=== PATIENT | female | born 1990 | race American Indian/Alaskan Native ===

== ENCOUNTER 2018-12-02 05:57 | Emergency (ER) | payer SELFPAY ==
[2018-12-02 06:07] VITALS: BP 130/70
[2018-12-02 06:20] LABS: Basophils % (Auto) 1.1 % (0.0-1.8); Eosinophils # (Auto) 0.2 K/mm3 (0.0-0.4); Eosinophils % (Auto) 3.7 % (0.0-4.3); Hemoglobin 12.5 gm/dl (10.1-14.3); Lymphocytes # (Auto) 1.9 K/mm3 (1.2-5.4); Lymphocytes % (Auto) 42.6 % (13.4-35.0); Mean Corpuscular HGB Conc 33 % (30-34); Mean Corpuscular Volume 89 fl (79-97); Monocytes # (Auto) 0.4 K/mm3 (0.0-0.8); Platelet Count 252 K/mm3 (140-440); Red Blood Count 4.28 M/mm3 (3.65-5.03); Red Cell Distribution Width 15.2 % (13.2-15.2)
[2018-12-02 06:36] LABS: Alanine Aminotransferase 155 units/L (7-56); Albumin 4.6 g/dL (3.9-5); BUN/Creatinine Ratio 18; Blood Urea Nitrogen 14 mg/dL (7-17); Hemolysis Index 5
== END 2018-12-02 06:48 | disposition left against medical advice (07) ==
LOC: ED 05:57
DX: R10.9 Unspecified abdominal pain (principal); Z53.21 Procedure and treatment not carried out due to patient leaving prior to being seen by health care provider
CPT/HCPCS: 36415; 80053; 83690; 84703; 85025

== ENCOUNTER 2018-12-02 08:46 | Emergency (ER) | payer BC ==
[2018-12-02] MEDS ORDERED: NACL 0.9% 1000 ML 1,000 ML IV ONE (09:02)
[2018-12-02] MEDS ORDERED: TORADOL IM ONE (09:02)
[2018-12-02] MEDS ORDERED: PEPCID IV ONE (09:02)
[2018-12-02] MEDS ORDERED: ZOFRAN IM ONE (09:02)
[2018-12-02] MEDS ORDERED: BENTYL IM ONE ×2 (09:02→09:05)
[2018-12-02] MEDS ORDERED: TORADOL ONE (09:05)
[2018-12-02] MEDS ORDERED: ZOFRAN ONE (09:05)
--- NOTE | 2018-12-02 10:32 | Ultrasound Report ---
ULTRASOUND ABDOMEN, LIMITED (RIGHT UPPER QUADRANT), 12/02/2018 INDICATION: Right upper quadrant pain. Nausea and vomiting COMPARISON: None FINDINGS: Pancreas: Visualized portion shows no significant abnormality. Liver: Visualized portions of the liver appear normal. Gallbladder: The gallbladder contains several small stones, the largest of which measures 1.3 cm. The re is no evidence of gallbladder wall thickening or pericholecystic fluid. Bile ducts: Common Bile Duct is normal in caliber, measuring less than 5 mm. Free fluid: None. Additional Findings: None. IMPRESSION: 1. Several gallstones as described without sonographic evidence to suggest cholecystitis. Signer Name: Rosita Olguin MD Signed: 12/02/2018 10:27 AM Workstation Name: [id number]
--- NOTE | 2018-12-02 11:16 | Emergency Department Report ---
ED Abdominal Pain HPI - General Chief Complaint: Abdominal Pain Stated Complaint: STOMACH PAIN/VOMIT/SOB Time Seen by Provider: 12/02/18 08:56 Source: patient Mode of arrival: Ambulatory Limitations: No Limitations - History of Present Illness Initial Comments: Patient is a 28-year-old female who is presenting with abdominal pain since last night. Patient states that the pain is severe in the upper epigastric area. She's had small episodes of nausea and vomiting. She states that her symptom present for approximately one week off and on. She states it is worse with eating but cannot remember specifically which foods made the pain worse. Patient actually was received here in the emergency department but left AGAINST MEDICAL ADVICE after labs were drawn because she had to go home to breast-feed her child. Patient is returned. Patient denies any fevers chills diarrhea cough cold or congestion. Severity scale (0 -10): 8 - Related Data Previous Rx's Medication Instructions Recorded Last Taken Type Dicyclomine [Bentyl] 20 mg PO QID #10 tablet 12/02/18 Unknown Rx Ondansetron [Zofran Odt] 4 mg PO Q8HR #10 tab.rapdis 12/02/18 Unknown Rx oxyCODONE /ACETAMINOPHEN [Percocet 1 tab PO Q6HR PRN #14 tablet 12/02/18 Unknown Rx 5/325] Allergies Allergy/AdvReac Type Severity Reaction Status Date / Time No Known Allergies Allergy Unverified 12/02/18 06:07 ED Review of Systems ROS: Stated complaint: STOMACH PAIN/VOMIT/SOB Other details as noted in HPI Comment: All other systems reviewed and negative ED Past Medical Hx - Past Medical History Previous Medical History?: No - Surgical History Past Surgical History?: Yes Additional Surgical History: X1 - Social History Smoking Status: Never Smoker Substance Use Type: None - Medications Home Medications: Home Medications Medication Instructions Recorded Confirmed Last Taken Type Dicyclomine [Bentyl] 20 mg PO QID #10 tablet 12/02/18 Unknown Rx Ondansetron [Zofran Odt] 4 mg PO Q8HR #10 tab.rapdis 12/02/18 Unknown Rx oxyCODONE /ACETAMINOPHEN [Percocet 1 tab PO Q6HR PRN #14 tablet 12/02/18 Unknown Rx 5/325] ED Physical Exam - General Limitations: No Limitations General appearance: alert, in distress - Head Head exam: Present: atraumatic, normocephalic - Eye Eye exam: Present: normal appearance, PERRL, EOMI - ENT ENT exam: Present: mucous membranes moist - Neck Neck exam: Present: normal inspection - Respiratory Respiratory exam: Present: normal lung sounds bilaterally. Absent: respiratory distress, wheezes, rales, rhonchi - Cardiovascular Cardiovascular Exam: Present: regular rate, normal rhythm, normal heart sounds. Absent: systolic murmur, diastolic murmur, rubs, gallop - GI/Abdominal GI/Abdominal exam: Present: soft, tenderness (epigastric and right upper quadrant.), guarding, normal bowel sounds. Absent: distended, rebound, rigid - Extremities Exam Extremities exam: Present: normal inspection - Back Exam Back exam: Present: normal inspection - Neurological Exam Neurological exam: Present: alert, oriented X3 - Psychiatric Psychiatric exam: Present: normal affect, normal mood - Skin Skin exam: Present: warm, dry, intact, normal color. Absent: rash ED Course Vital Signs 12/02/18 08:50 Pulse Rate 61 Respiratory 18 Rate Blood Pressure 127/80 O2 Sat by Pulse 92 Oximetry ED Medical Decision Making - Lab Data Laboratory studies from the patient's previous visit showed she has a normal white count 4.5. Bilirubin is 0.70. AST and ALTs are 175 and 155 respectively. There is elevation of her alkaline phosphatase level at 210. Electrolytes are within normal limits. - Radiology Data [facility] [address] [id number] Ultrasound Report Signed Patient: MIGDALIA YAN MR#: [id number] : 1990 Acct:[id number] Age/Sex: 28 / F ADM Date: 12/02/18 Loc: ED Attending Dr: Ordering Physician: SUDHAKAR MANCILLA MD Date of Service: 12/02/18 Procedure(s): US abdomen limited Accession Number(s): [id number] cc: SUDHAKAR MANCILLA MD ULTRASOUND ABDOMEN, LIMITED (RIGHT UPPER QUADRANT), 12/02/2018 INDICATION: Right upper quadrant pain. Nausea and vomiting COMPARISON: None FINDINGS: Pancreas: Visualized portion shows no significant abnormality. Liver: Visualized portions of the liver appear normal. Gallbladder: The gallbladder contains several small stones, the largest of which measures 1.3 cm. There is no evidence of gallbladder wall thickening or pericholecystic fluid. Bile ducts: Common Bile Duct is normal in caliber, measuring less than 5 mm. Free fluid: None. Additional Findings: None. IMPRESSION: 1. Several gallstones as described without sonographic evidence to suggest cholecystitis. Signer Name: Rosita Olguin MD Signed: 12/02/2018 10:27 AM Workstation Name: [email or web address] Transcribed By: EB Dictated By: Rosita Olguin MD Electronically Authenticated By: Rosita Olguin MD Signed Date/Time: 12/02/18 1027 - Medical Decision Making Patient is a 28-year-old female who is presenting with upper abdominal pain. Patient states she doesn't remember which foods was noted the pain during the week but her last meal was some takis. As the location of pain and the fact that her last meal was fried chips do suspect cholelithiasis or cholecystitis. Ultrasound confirms that the patient does have multiple mobile gallstones. Common bile duct is within normal limits. Patient's pain was controlled here in emergency department. Patient will be discharged home to follow with general surgery. Patient had a long discussion regarding the types of foods she should avoid until she is able to have her gallbladder removed. Patient is stable at discharge for discharge at this time. Critical care attestation.: If time is entered above; I have spent that time in minutes in the direct care of this critically ill patient, excluding procedure time. ED Disposition Clinical Impression: Cholelithiasis, Biliary colic Disposition: DC-01 TO HOME OR SELFCARE Is pt being admited?: No Does the pt Need Aspirin: No Condition: Stable Instructions: Biliary Colic (ED) Referrals: YOLANDA SILVEIRA MD [Staff Physician] - 3-5 Days Time of Disposition: 11:17
[2018-12-02 11:37] VITALS: BP 119/70
== END 2018-12-02 11:37 | disposition home or self-care (01) ==
LOC: ED 08:46
DX: K80.70 Calculus of gallbladder and bile duct without cholecystitis without obstruction (principal); R11.2 Nausea with vomiting, unspecified; Z79.899 Other long term (current) drug therapy
CPT/HCPCS: 76705; 96361; 96372; 96374; 99283; J0500; J1885; J2405; J7030

== ENCOUNTER 2019-03-19 22:17 | Emergency (ER) | payer BC, MEDICAID | END 2019-03-20 03:16 | disposition home or self-care (01) | LOC: ED 22:17 | CPT/HCPCS: 36415; 80053; 81001; 84703; 85025; 96361; 96372; 96374; 96375; 99284; J0500; J2765; J7042 ==